=== PATIENT | female | born 2000 | race Two or more races ===

== ENCOUNTER 2023-10-26 12:21 | Observation (INO) | payer MEDICAID | END 2023-10-26 13:49 | disposition home or self-care (01) | LOC: LDRP 12:21 | PROVIDERS: ADMIT Obstetrics & Gynecology; ATTEND Obstetrics & Gynecology | DX: O48.0 Post-term pregnancy (principal); Z3A.40 40 weeks gestation of pregnancy | CPT/HCPCS: 59025; 76818; 81002; 94760; G0378 ==

== ENCOUNTER 2023-10-28 11:02 | Inpatient (IN) | payer MEDICAID ==
[~2023-10-28] VITALS: Ht 154.9 cm; Wt 90.7 kg
[2023-10-28] MEDS ORDERED: BUTORPHANOL TARTRATE 2 MG/1 ML VIAL IV PRN ×2 (11:30)
[2023-10-28 11:59] LABS: Basophils # (auto) 0 10 ^3/uL (0-0.2); Basophils % (auto) 0.1 % (0.0-2.0); Eosinophils # (auto) 0 10 ^3/uL (0-0.8); Eosinophils % (auto) 0.3 % (0.0-7.0); Hemoglobin 12.7 g/dL (12.2-16.2); Lymphocytes # (auto) 2.1 10 ^3/uL (0.4-5.4); Lymphocytes % (auto) 23.7 % (10.0-50.0); Mean Corpuscular Hemoglobin 30.5 pg (28.0-32.0); Mean Corpuscular Hgb Conc. 34.4 g/dL (32.0-36.0); Mean Corpuscular Volume 88.6 fL (80.0-100.0); Monocytes # (auto) 0.7 10 ^3/uL (0-1.3); Monocytes % (auto) 8.2 % (0.0-12.0); Neutrophils # (auto) 5.9 10 ^3/uL (1.6-8.6); Neutrophils % (auto) 67.7 % (37.0-80.0); Red Blood Cells 4.18 10^6/uL (4.0-5.20); Red Cell Distribution Width 15.3 % (11.8-14.3); White Blood Cell 8.7 10^3/uL (4.4-10.8)
[2023-10-28 12:03] LABS: Urine Bacteria None Seen /hpf (None Seen)
[2023-10-28 12:03] LABS: Alanine Aminotransferase 23 U/L (7-40); Albumin 3.8 g/dL (3.2-4.8); Alkaline Phosphatase 212 U/L (46-116); Anion Gap 9 (5-15); Aspartate Aminotransferase 15 U/L (13-40); BUN/Creatinine Ratio 10.4 (10.0-20.0); Bilirubin, Total 0.5 mg/dL (0.2-1.0); Blood Urea Nitrogen 5 mg/dL (9-23); Carbon Dioxide 21 mmol/L (20-30); Chloride 106 mmol/L (98-107); Glucose 88 mg/dL (74-106); Potassium 3.7 mmol/L (3.5-5.1); Sodium 136 mmol/L (136-145); Total Protein 6.3 g/dL (5.7-8.2)
[2023-10-28 12:06] LABS: INR 0.95 (0.9-1.15); Partial Thromboplastin Time 27.4 SEC (24.5-34.5); Prothrombin Time 10.1 sec (9.3-11.8)
[2023-10-28 12:13] LABS: Urine Blood Negative /uL (Negative); Urine Clarity Turbid (Clear); Urine Color Yellow (Yellow); Urine Mucus FEW (None Seen); Urine Protein, UAD TRACE (Negative); Urine Specific Gravity 1.023 (1.001-1.035); Urine Urobilinogen 2 mg/dL (Negative); Urine WBC 1 /hpf (0 - 5); Urine pH 6.5 (5.0-9.0)
[2023-10-28 12:25] LABS: Amphetamine Screen, Urine Neg (NEGATIVE); Barbiturate Scree,Urine Neg (NEGATIVE); Benzodiazephine Screen, Urine Neg (NEGATIVE); Cocaine Screen, Urine Neg (NEGATIVE)
[2023-10-28 12:26] LABS: Cannabinoid Screen, Urine Neg (NEGATIVE); Opiate Scree,Urine Neg (NEGATIVE); Phencyclidine Screen, Urine Neg (NEGATIVE)
[2023-10-28] MEDS: LACTATED RINGER'S 1,000 ML IV SCH (12:52)
[2023-10-28] MEDS: miSOPROStol 50 MCG per PRE-CUT 1/2 TAB PO PRN (13:00)
[2023-10-29] MEDS ORDERED: TERBUTALINE SULFATE 1 MG/ML 1ML VIAL SC PRN (04:30)
[2023-10-29] MEDS ORDERED: ONDANSETRON HCL 4 MG/2 ML VIAL IV PRN (04:30)
[2023-10-29] MEDS: LIDOCAINE HCL 2 %PF INJ 10ML AMP IJ ONE (07:45)
[2023-10-29] MEDS: LACTATED RINGER'S 1,000 ML IV ONE (07:45)
[2023-10-29] MEDS: NALOXONE HCL 0.4 MG/ML VIAL IV ONE ×2 (09:45→19:00)
[2023-10-29] MEDS ORDERED: fentaNYL 400mCg/200ml W ROPIVA 200 ML EPI SCH (09:45)
[2023-10-29] MEDS: ePHEDrine SULFATE 50 MG/ML AMP IV ONE ×2 (09:45→19:00)
[2023-10-29] MEDS: NALBUPHINE HCL 10 MG/1ml INJECTION IV PRN (10:07)
[2023-10-29] MEDS: fentaNYL CITRATE 100 MCG/2 ML VL IV ONE ×2 (14:09→14:10)
[2023-10-29] MEDS: ROPIVACAINE HCL 200 ML ONE (14:10)
[2023-10-29] MEDS: LACT. RINGERS/OXYTOCIN 20UNITS 1,000 ML IV SCH (14:11)
[2023-10-29] MEDS: LIDOCAINE 2%HCL (LOCAL ANESTH.) INJ 10ml MDV ONE (19:00)
[2023-10-29] MEDS: fentaNYL CITRATE 100 MCG/2 ML VL ONE (19:00)
[2023-10-29] MEDS: LACT. RINGERS/OXYTOCIN 20UNITS 500 ML IV ONE ×2 (19:38→20:03)
[2023-10-29] MEDS: METHYLERGONOVINE MALEATE 0.2 MG/ML AMP IM ONE (20:04)
[2023-10-29] MEDS: LIDOCAINE 2%HCL (LOCAL ANESTH.) INJ 20ML MDV IJ PRN (20:05)
[2023-10-29] MEDS ORDERED: IBUPROFEN 600 MG TAB PO PRN (21:30)
[2023-10-29] MEDS: DERMOPLAST 60ML BOTTLE TOP PRN (21:43)
[2023-10-29] MEDS: PHISODERM TOP SOLN 240ML BTL TOP PRN (21:43)
[2023-10-29] MEDS: WITCH HAZEL-GLYCERIN PAD TOP PRN (21:43)
[2023-10-29] MEDS: ACETAMINOPHEN 325 MG TAB PO PRN (21:44)
[2023-10-29] MEDS: DOCUSATE SOD 100 MG CAP PO SCH (22:00)
[2023-10-29 22:32] LABS: Basophils # (auto) 0 10 ^3/uL (0-0.2); Basophils % (auto) 0.3 % (0.0-2.0); Eosinophils # (auto) 0 10 ^3/uL (0-0.8); Eosinophils % (auto) 0.1 % (0.0-7.0); Hematocrit 37.5 % (36.0-46.0); Hemoglobin 12.7 g/dL (12.2-16.2); Lymphocytes # (auto) 2.1 10 ^3/uL (0.4-5.4); Lymphocytes % (auto) 11.8 % (10.0-50.0); Mean Corpuscular Hemoglobin 30.1 pg (28.0-32.0); Mean Corpuscular Volume 88.7 fL (80.0-100.0); Monocytes # (auto) 1.2 10 ^3/uL (0-1.3); Monocytes % (auto) 6.8 % (0.0-12.0); Neutrophils # (auto) 14.2 10 ^3/uL (1.6-8.6); Red Blood Cells 4.23 10^6/uL (4.0-5.20); Red Cell Distribution Width 15.1 % (11.8-14.3); White Blood Cell 17.5 10^3/uL (4.4-10.8)
[2023-10-29 23:00] VITALS: BP 106/64; PULSE 94; RESP 16; TEMP 98.3; O2SAT 98
[2023-10-30] MEDS: LACT. RINGERS/OXYTOCIN 20UNITS 1,000 ML IV SCH (00:13)
[2023-10-30 03:00] VITALS: BP 105/66; PULSE 91; RESP 14; TEMP 98.9; O2SAT 97
[2023-10-30 05:49] LABS: Basophils # (auto) 0 10 ^3/uL (0-0.2); Basophils % (auto) 0.4 % (0.0-2.0); Eosinophils # (auto) 0 10 ^3/uL (0-0.8); Eosinophils % (auto) 0.1 % (0.0-7.0); Hematocrit 32.5 % (36.0-46.0); Lymphocytes # (auto) 2.1 10 ^3/uL (0.4-5.4); Mean Corpuscular Hemoglobin 30.3 pg (28.0-32.0); Mean Corpuscular Hgb Conc. 33.9 g/dL (32.0-36.0); Mean Corpuscular Volume 89.4 fL (80.0-100.0); Monocytes # (auto) 1.1 10 ^3/uL (0-1.3); Monocytes % (auto) 8.3 % (0.0-12.0); Neutrophils # (auto) 9.6 10 ^3/uL (1.6-8.6); Neutrophils % (auto) 75.2 % (37.0-80.0); Red Blood Cells 3.64 10^6/uL (4.0-5.20); Red Cell Distribution Width 15.3 % (11.8-14.3); White Blood Cell 12.8 10^3/uL (4.4-10.8)
[2023-10-30 07:02] VITALS: BP 104/56; PULSE 111; RESP 18; TEMP 98.3; O2SAT 96
[2023-10-30 10:55] VITALS: BP 107/59; PULSE 111; RESP 18; TEMP 98.2; O2SAT 97
[2023-10-30 15:30] VITALS: BP 103/60; PULSE 102; RESP 20; TEMP 98.2; O2SAT 20
[2023-10-30 19:00] VITALS: BP 103/67; PULSE 103; RESP 16; TEMP 97.4; O2SAT 97
[2023-10-30 23:00] VITALS: BP 106/69; PULSE 99; RESP 16; TEMP 97.8; O2SAT 97
[2023-11-01 12:47] LABS: RPR Non Reactive (Non Reactive)
== END 2023-10-30 23:43 | disposition home or self-care (01) | DRG 560 ==
LOC: LDRP 11:02 → UNDOADMIN 11:02 → LDRP 11:18
PROVIDERS: ADMIT Obstetrics & Gynecology; ATTEND Obstetrics & Gynecology
PROC: 3E0DXGC Introduction of Other Therapeutic Substance into Mouth and Pharynx, External Approach (ICD-10-PCS; 2023-10-28)
PROC: 10E0XZZ Delivery of Products of Conception, External Approach (ICD-10-PCS; principal; 2023-10-30)
PROC: 00HU33Z Insertion of Infusion Device into Spinal Canal, Percutaneous Approach (ICD-10-PCS; 2023-10-30)
PROC: 3E0R3BZ Introduction of Anesthetic Agent into Spinal Canal, Percutaneous Approach (ICD-10-PCS; 2023-10-30)
PROC: 0KQM0ZZ Repair Perineum Muscle, Open Approach (ICD-10-PCS; 2023-10-30)
DX: O48.0 Post-term pregnancy (principal); Z37.0 Single live birth; O70.1 Second degree perineal laceration during delivery; Z3A.40 40 weeks gestation of pregnancy
CPT/HCPCS: 36415; 59409; 62282; 80053; 80307; 81001; 85025; 85610; 85730; 86592; 86803; 86850; 86900; 86901; 94760; 96360; 96361; 96365; 96366; 96372; 96374; G0378; J2001; J2590

== ENCOUNTER 2024-10-22 02:48 | Inpatient (IN) | payer MEDICAID ==
[~2024-10-22] VITALS: Ht 154.9 cm; Wt 86.2 kg
[2024-10-22] MEDS: PHISODERM TOP SOLN 240ML BTL TOP PRN (03:42)
[2024-10-22] MEDS: DERMOPLAST 60ML BOTTLE TOP PRN (03:42)
[2024-10-22] MEDS: PENICILLIN G POT 5MIL/D5 50ML 50 ML IV ONE (03:42)
[2024-10-22] MEDS: WITCH HAZEL-GLYCERIN PAD TOP PRN (03:42)
[2024-10-22 04:01] LABS: Hematocrit 40.1 % (36.0-46.0); Hemoglobin 13.7 g/dL (12.2-16.2); Mean Corpuscular Hemoglobin 31.1 pg (28.0-32.0); Mean Corpuscular Volume 91.3 fL (80.0-100.0); Nucleated Red Blood Cells % 0.0 %
[2024-10-22 04:12] LABS: INR 0.92 (0.9-1.15); Partial Thromboplastin Time 29.4 SEC (24.5-34.5); Prothrombin Time 9.8 sec (9.3-11.8)
[2024-10-22 04:18] LABS: Alanine Aminotransferase 10 U/L (7-40); Albumin 4.0 g/dL (3.2-4.8); Anion Gap 10 (5-15); BUN/Creatinine Ratio 16.7 (10.0-20.0); Calcium 8.9 mg/dL (8.7-10.4); Carbon Dioxide 21 mmol/L (20-31); Chloride 105 mmol/L (98-107); Glucose 85 mg/dL (74-106); Potassium 3.6 mmol/L (3.5-5.1); Sodium 136 mmol/L (136-145); Total Protein 6.6 g/dL (5.7-8.2)
[2024-10-22 04:19] LABS: Bilirubin, Total 0.5 mg/dL (0.2-1.0)
[2024-10-22 04:30] LABS: Alkaline Phosphatase 187 U/L (46-116); Blood Urea Nitrogen 7 mg/dL (9-23)
[2024-10-22] MEDS: NALBUPHINE HCL 10 MG/1ml INJECTION IV PRN (04:30)
[2024-10-22 04:59] LABS: Urine Protein, UAD Negative (Negative)
[2024-10-22 05:12] LABS: Amphetamine Screen, Urine Neg (NEGATIVE); Barbiturate Scree,Urine Neg (NEGATIVE); Benzodiazephine Screen, Urine Neg (NEGATIVE); Cannabinoid Screen, Urine Neg (NEGATIVE); Cocaine Screen, Urine Neg (NEGATIVE); Opiate Scree,Urine Neg (NEGATIVE); Phencyclidine Screen, Urine Neg (NEGATIVE)
[2024-10-22] MEDS ORDERED: LIDOCAINE HCL 2 %PF INJ 10ML AMP IJ ONE (05:30)
[2024-10-22] MEDS ORDERED: NALOXONE HCL 0.4 MG/ML VIAL IV ONE (05:30)
[2024-10-22] MEDS: LACTATED RINGER'S 1,000 ML IV SCH (05:34)
--- NOTE | 2024-10-22 05:50 | DVHHP2 ---
OB CC & HPI Date Date of Admission: Oct 22, 2024 Patient Identification: : 4 Para: 1 EDC: Oct 22, 2024 Chief Complaints: Reason for admission: active labor Other reason for admission: Active labor 5cm ,60%,-1 Admission Nurse Assessment Rev: Yes Past Medical History Cardiac: No pertinent Hx Pulmonary: No pertinent Hx Central Nervous System: No pertinent Hx GI: No pertinent Hx Hemotology/Oncology: No pertinent Hx Hepatobiliary: No pertinent Hx Psychiatric: No pertinent Hx Musculoskeletal: No pertinent Hx Rheumotologic: No pertinent Hx Infectious Disease: No peritnent Hx ENT: No pertinent Hx Renal/: No pertinent Hx Endocrine: No pertinent Hx Dermatology: No pertinent Hx OB History OB History Care: Limited Care Ultrasounds: Normal mid trimester US Allergies: Coded Allergies: NO KNOWN ALLERGIES (Unverified , 10/28/23) Home Meds No Active Prescriptions or Reported Meds Current Medications Current Medications Medications (Trade) Dose Ordered Sig/Cyndee Route PRN Reason Start Time Stop Time Status Last Admin Lactated Ringer's 1,000 ml @ 125 mls/hr Q8H IV 10/22/24 03:30 10/22/24 05:34 Nalbuphine HCl (Nubain) 10 mg Q4HP PRN IV MODERATE PAIN (4-6 PAIN SCALE) 10/22/24 03:30 10/22/24 04:30 Penicillin G Potassium 4424969 units/Dextrose 50 ml @ 100 mls/hr Q4H IV 10/22/24 07:30 Witch Corinne (Tucks) 1 pad PRN PRN TOP PERINEAL AREA DISCOMFORT 10/22/24 03:30 10/22/24 03:42 Sodium Lauryl Sulfate (Phisoderm) 240 ml PRN PRN TOP PERINEAL AREA DISCOMFORT 10/22/24 03:30 10/22/24 03:42 Benzocaine (Dermoplast) 1 applic PRN PRN TOP PERINEAL AREA DISCOMFORT 10/22/24 03:30 10/22/24 03:42 Lidocaine HCl (Xylocaine) 40 ml ONCE PRN IJ PERINEAL AREA DISCOMFORT 10/22/24 03:30 Methylergonovine Maleate (Methergine) 0.2 mg PRN PRN IM BLEED/HEMORRHAGE 10/22/24 03:30 Family & Social History Family/Social History RPR/VDRL: Negative GBS Status: Negative Review of Systems Constitutional: No symptom reported Ears, Nose, & Throat: No symptom reported Eyes: No symptom reported Pulmonary/Respiratory: No symptom reported Cardiovascular: No symptom reported Gastrointestinal: No symptom reported Genitourinary: No symptom reported Musculoskeletal: No symptom reported Skin: No symptom reported Psychiatric: No symptom reported Endocrine: No symptom reported Hemotologic/Lymphatic: No symptom reported OB Admission Exam Physical Exam Vitals: Vital Signs Date Time Temp Pulse Resp B/P (MAP) Pulse Ox O2 Delivery O2 Flow Rate FiO2 10/22/24 05:34 89 15 113/63 HEENT: TMs Normal, Fontanelles Normal, Nasal Mucosa Normal, Eyes non-injected, Oropharynx Normal, PERRLA, Moist Membranes, EOMI Heart: Rhythm Normal Lungs: Clear Abdomen: Gravid Extremities: Normal Reflexes: Normal Cervical Dilatation: 5cm Effacement: 50% Station: -1 Membranes: Intact Heart Rate: 130's Accelerations: Accelerations Present Decelerations: No Decelerations Short Term Variability: Present Bacteriologist Medical Variability: Average (6-25) Contractions on Admission: < 5 Minutes Apart Intensity: Mild OB Plan Plan Admitting Diagnosis: Onset of Labor Plan: Expectant Management Visit Coding OBGYN Date of Service: Oct 22, 2024 Billing Provider: JANET RODRIGUEZ DO MANAGER FIELD SERVICE Common Visit Codes: 42223-HZT/OBS SAME DATE (LOW), 42116-JKT/OBS SAME DATE (MOD), 72524-DXS/OBS SAME DATE (HIGH) MANAGER FIELD SERVICE Procedure Codes: 44208-TDM DEL INCLUDING JANET RODRIGUEZ DO Oct 22, 2024 05:50
[2024-10-22] MEDS: fentaNYL CITRATE 100 MCG/2 ML VL IV ONE (06:25)
--- NOTE | 2024-10-22 06:40 | EPIDURAL ---
Anesthesia Procedural Note - Epidural Informed consent obtained?: Yes Medication Administered: Fentanyl 100 mcg Medication Administered: ePHEDrine 5 mg IV Sterile prept drape: Yes Spinal level of insertion: L3-L4 Test dose of lidocaine & Epine: Negative Infusion started: Yes Start time: 05:50 End time: 14:25 Procedure description Procedure description: 23 y/o at 28.5 weeks AOG in active labor, desires PCEA for L & D. Delivered a single live baby girl with APGARs 8 & 8 at 1 & 5 minutes respectively. There was also noted thick, meconium stained fluid. Epidural catheter pulled with tip intact. No oozing, redness, or pain around the epidural area. She is back to baseline, able to ambulate and blakely with her . Total epidural time: 0550 - 1425 Total face to face time: 0550 - 0640 LOS SORIA MD Oct 22, 2024 06:40
[2024-10-22] MEDS ORDERED: PENICILLIN G POTASSIUM 2,500,000 UNITS in D5W 5% 50 ML IV SCH (07:30)
--- NOTE | 2024-10-22 07:59 | DVHPN2 ---
CNM Labor Progress Note Date and Time Seen Date Seen: Oct 22, 2024 Time Seen: 07:51 Subjective Patient reports: No new complaints Subjective Comment Pt is comfortable with epidural. Objective Vital Signs VSS, see chart Leopolds: OMER, asynclitic, vertex Monitoring Method Monitoring Method: External Heart Rate Heart Rate Baseline: 120 Heart Rate Variability: Minimal Presence of FHR Accelerations: Yes Presence of FHR Decelerations: Yes Heart Rate Type of Decel: Late Decelerations Comment on Trends or Patterns: IV fluid bolus given maternal position changed Are all 5 Components of the FH: Yes Contractions Contractions Frequency: Other (q3-4 min) Duration of Contraction: 100 Contractions Intensity: Moderate Contractions Resting Tone: Relaxed Membranes Membranes: Bulging Vaginal Exam Vag Exam Deferred: Yes () Medications Medications - Pitocin: No Medication - Epidural: Yes Lab Results Lab Results Vital Signs Date Time Temp Pulse Resp B/P (MAP) Pulse Ox O2 Delivery O2 Flow Rate FiO2 10/22/24 06:25 123/78 10/22/24 05:34 89 15 Current Medications Medications (Trade) Dose Ordered Sig/Cyndee Start Time Stop Time Status Last Admin Dose Admin Lactated Ringer's 1,000 ml @ 125 mls/hr Q8H 10/22/24 03:30 10/22/24 05:34 125 MLS/HR Nalbuphine HCl (Nubain) 10 mg Q4HP PRN 10/22/24 03:30 10/22/24 04:30 10 MG Penicillin G Potassium 50 ml @ 100 mls/hr ONCE ONCE 10/22/24 03:30 10/22/24 03:59 DC 10/22/24 03:42 100 MLS/HR Penicillin G Potassium [id number] units/Dextrose 50 ml @ 100 mls/hr Q4H 10/22/24 07:30 Witch Corinne (Tucks) 1 pad PRN PRN 10/22/24 03:30 10/22/24 03:42 1 PAD Sodium Lauryl Sulfate (Phisoderm) 240 ml PRN PRN 10/22/24 03:30 10/22/24 03:42 240 ML Benzocaine (Dermoplast) 1 applic PRN PRN 10/22/24 03:30 10/22/24 03:42 1 APPLIC Lidocaine HCl (Xylocaine) 40 ml ONCE PRN 10/22/24 03:30 Oxytocin 500 ml @ 999 mls/hr Q31M ONCE 10/22/24 03:30 10/22/24 04:00 DC Oxytocin 500 ml @ 125 mls/hr Q4H ONCE 10/22/24 04:00 10/22/24 07:59 DC Methylergonovine Maleate (Methergine) 0.2 mg PRN PRN 10/22/24 03:30 Naloxone HCl (Narcan) 0.2 mg PRN ONCE 10/22/24 05:30 10/22/24 05:31 DC Ephedrine Sulfate (ePHEDrine SULFATE) 10 mg PRN ONCE 10/22/24 05:30 10/22/24 05:31 DC Fentanyl Citrate 100 mcg ONCE ONCE 10/22/24 05:30 10/22/24 05:31 DC 10/22/24 06:25 100 MCG Lidocaine HCl (Xylocaine-Pf 2% Injection) 10 ml ONCE ONCE 10/22/24 05:30 10/22/24 05:31 DC Laboratory Tests Test 10/22/24 03:44 10/22/24 03:34 10/22/24 03:24 Range/Units White Blood Count 11.2 H 4.4-10.8 10^3/uL Red Blood Count 4.39 4.0-5.20 10^6/uL Hemoglobin 13.7 12.2-16.2 g/dL Hematocrit 40.1 36.0-46.0 % Mean Corpuscular Volume 91.3 80.0-100.0 fL Mean Corpuscular Hemoglobin 31.1 28.0-32.0 pg Mean Corpuscular Hemoglobin Concent 34.1 32.0-36.0 g/dL Red Cell Distribution Width 13.2 11.8-14.3 % Platelet Count 145 140-450 10^3/uL Mean Platelet Volume 9.0 6.9-10.8 fL Neutrophils (%) (Auto) 67.2 37.0-80.0 % Lymphocytes (%) (Auto) 24.3 10.0-50.0 % Monocytes (%) (Auto) 7.8 0.0-12.0 % Eosinophils (%) (Auto) 0.3 0.0-7.0 % Basophils (%) (Auto) 0.4 0.0-2.0 % Neutrophils # (Auto) 7.5 1.6-8.6 10 ^3/uL Lymphocytes # (Auto) 2.7 0.4-5.4 10 ^3/uL Monocytes # (Auto) 0.9 0-1.3 10 ^3/uL Eosinophils # (Auto) 0 0-0.8 10 ^3/uL Basophils # (Auto) 0 0-0.2 10 ^3/uL Nucleated Red Blood Cells 0.0 % Prothrombin Time 9.8 9.3-11.8 sec Prothrombin Time INR 0.92 0.9-1.15 Activated Partial Thromboplast Time 29.4 24.5-34.5 SEC Sodium Level 136 136-145 mmol/L Potassium Level 3.6 3.5-5.1 mmol/L Chloride Level 105 98-107 mmol/L Carbon Dioxide Level 21 20-31 mmol/L Anion Gap 10 5-15 Blood Urea Nitrogen 7 L 9-23 mg/dL Creatinine 0.42 L 0.550-1.02 mg/dL Glomerular Filtration Rate Calc 143 >90 mL/min BUN/Creatinine Ratio 16.7 10.0-20.0 Serum Glucose 85 74-106 mg/dL Hemoglobin A1c 4.8 <5.7 % A1C Calcium Level 8.9 8.7-10.4 mg/dL Total Bilirubin 0.5 0.2-1.0 mg/dL Aspartate Amino Transferase (AST) 18 13-40 U/L Alanine Aminotransferase (ALT) 10 7-40 U/L Alkaline Phosphatase 187 H 46-116 U/L Total Protein 6.6 5.7-8.2 g/dL Albumin 4.0 3.2-4.8 g/dL Treponema pallidum Antibody Non-reactive Negative Hepatitis B Surface Antigen Negative Negative Hepatitis C Antibody Negative Negative HIV (1&2) Antibody Negative Negative Rubella Antibody Positive Urine Color Colorless Yellow Urine Clarity Turbid H Clear Urine pH 6.5 5.0-9.0 Urine Specific [place] 1.018 1.001-1.035 Urine Protein Negative Negative Urine Ketones 1+ H Negative Urine Blood 1+ H Negative /uL Urine Nitrite Negative Negative Urine Bilirubin Negative Negative Urine Urobilinogen Normal Negative mg/dL Urine Leukocyte Esterase 2+ Negative /uL Urine RBC 1 0 - 4 /hpf Urine Microscopic WBC 30 H 0-5 /HPF Urine Squamous Epithelial Cells Mod <5 /hpf Urine Bacteria Few H None Seen /hpf Urine Mucus Few None Seen Urine Glucose Normal Normal mg/dL Urine Opiates Screen Neg NEGATIVE Urine Fentanyl Screen Neg NEGATIVE Urine Barbiturates Screen Neg NEGATIVE Urine Phencyclidine Screen Neg NEGATIVE Urine Amphetamines Screen Neg NEGATIVE Urine Benzodiazepines Screen Neg NEGATIVE Urine Cocaine Screen Neg NEGATIVE Urine Cannabinoids Screen Neg NEGATIVE Chlamydia trachomatis (XAVIER) Pending Neisseria gonorrhoeae (XAVIER) Pending Assessment Assessment A: 23yo IUP@38.5wks Active labor Category I EFM Intact amniotic membranes GBS negative Plan Plan P: Expectant mgmt due to frequent UCs Reposition pt frequently with peanut ball HgA1c lab ordered since GTT was not done prenatally OB complete ordered since last few appts were missed Anticipate CNM to consult Dr. Mooney PRN Plan discussed with: Patient Visit Coding OBGYN Date of Service: Oct 22, 2024 Billing Provider: JOHN LOMBARDO CNM MERCHANDISING INTERN Common Visit Codes: [id number] INP/OBS CARE(MOD) MERCHANDISING INTERN Procedure Codes: 80184-18- NON-STRESS TEST JOHN LOMBARDO CNM Oct 22, 2024 07:59
--- NOTE | 2024-10-22 09:10 | DVH ---
LIMITED OB ULTRASOUND > 14 WKS: HISTORY: EFW TECHNIQUE: Multiple real-time grayscale images of the gravid uterus with duplex Doppler color flow an d M-mode spectral analysis. FINDINGS: IUP single live fetus at 37 weeks 3 days based on composite averages of the BPD, head circumference, abdominal circumference and femur length. The measurements are as follows: BPD: 9.1 cm, 37 weeks 1 day HC: 33.1 cm, 37 weeks 6 days AC: 33.8 cm, 37 weeks 5 days FL: 7.2 cm, 37 weeks 0 days Estimated date of delivery is 11/09/2024. Estimated weight 3227 grams heart rate 124 beats per minute JAMEL 9.6 cm Cervix is not evaluated Cephalic Presentation Posterior Placenta without previa or abruption. IMPRESSION: 1. IUP single live fetus at 37 weeks 3 days AUA with positive heart rate. Estimated weigh t is 3227 g.
--- NOTE | 2024-10-22 13:13 | DVHPN2 ---
CNM Labor Progress Note Date and Time Seen Date Seen: Oct 22, 2024 Time Seen: 13:05 Subjective Patient reports: No new complaints Objective Vital Signs VSS, see chart [address] [address] Ph: [phone] DIAGNOSTIC IMAGING Diagnostic Imaging Report : [id number] Signed PATIENT: NJ SULTANA ACCT: [id number] UNIT: [id number] : 2000 LOC: [facility] ROOM / BED: [facility] / A AGE / SEX: 23 / F ADM STATUS: ADM IN SERVICE 0739 ORDERING PHYSICIAN: JOHN LOMBARDO CNM PROCEDURE(s): OBUS - OB ULTRASOUND COMP GTR 14 WKS REASON: EFW ORDER NUMBER(s): [id number], ACCESSION NUMBER(s): [id number] LIMITED OB ULTRASOUND > 14 WKS: HISTORY: EFW TECHNIQUE: Multiple real-time grayscale images of the gravid uterus with duplex Doppler color flow and M-mode spectral analysis. FINDINGS: IUP single live fetus at 37 weeks 3 days based on composite averages of the BPD, head circumference, abdominal circumference and femur length. The measurements are as follows: BPD: 9.1 cm, 37 weeks 1 day HC: 33.1 cm, 37 weeks 6 days AC: 33.8 cm, 37 weeks 5 days FL: 7.2 cm, 37 weeks 0 days Estimated date of delivery is 11/09/2024. Estimated weight 3227 grams heart rate 124 beats per minute JAMEL 9.6 cm Cervix is not evaluated Cephalic Presentation Posterior Placenta without previa or abruption. IMPRESSION: 1. IUP single live fetus at 37 weeks 3 days AUA with positive heart rate. Estimated weight is 3227 g. ATED BY: FRANCISCO J CHOUDHARY MD DICTATED DATE/TIME: 10/22/24907 SIGNED BY: FRANCISCO J CHOUDHARY MD SIGNED DATE/TIME: 10/22/24907 CC: Monitoring Method Monitoring Method: External Heart Rate Heart Rate Baseline: 120 Heart Rate Variability: Moderate Presence of FHR Accelerations: Yes Presence of FHR Decelerations: No Are all 5 Components of the FH: Yes Contractions Contractions Frequency: Other (q3-4 min) Duration of Contraction: 90 Contractions Intensity: Moderate Contractions Resting Tone: Relaxed Membranes Membranes: Bulging Vaginal Exam Vag Exam Deferred: Yes ( by RN) Medications Medications - Pitocin: No Medication - Epidural: Yes Lab Results Lab Results Vital Signs Date Time Temp Pulse Resp B/P (MAP) Pulse Ox O2 Delivery O2 Flow Rate FiO2 10/22/24 06:25 123/78 10/22/24 05:34 89 15 Current Medications Medications (Trade) Dose Ordered Sig/Cyndee Start Time Stop Time Status Last Admin Dose Admin Lactated Ringer's 1,000 ml @ 125 mls/hr Q8H 10/22/24 03:30 10/22/24 05:34 125 MLS/HR Nalbuphine HCl (Nubain) 10 mg Q4HP PRN 10/22/24 03:30 10/22/24 04:30 10 MG Penicillin G Potassium 50 ml @ 100 mls/hr ONCE ONCE 10/22/24 03:30 10/22/24 03:59 DC 10/22/24 03:42 100 MLS/HR Penicillin G Potassium 7129602 units/Dextrose 50 ml @ 100 mls/hr Q4H 10/22/24 07:30 Witch Corinne (Tucks) 1 pad PRN PRN 10/22/24 03:30 10/22/24 03:42 1 PAD Sodium Lauryl Sulfate (Phisoderm) 240 ml PRN PRN 10/22/24 03:30 10/22/24 03:42 240 ML Benzocaine (Dermoplast) 1 applic PRN PRN 10/22/24 03:30 10/22/24 03:42 1 APPLIC Lidocaine HCl (Xylocaine) 40 ml ONCE PRN 10/22/24 03:30 Oxytocin 500 ml @ 999 mls/hr Q31M ONCE 10/22/24 03:30 10/22/24 04:00 DC Oxytocin 500 ml @ 125 mls/hr Q4H ONCE 10/22/24 04:00 10/22/24 07:59 DC Methylergonovine Maleate (Methergine) 0.2 mg PRN PRN 10/22/24 03:30 Naloxone HCl (Narcan) 0.2 mg PRN ONCE 10/22/24 05:30 10/22/24 05:31 DC Ephedrine Sulfate (ePHEDrine SULFATE) 10 mg PRN ONCE 10/22/24 05:30 10/22/24 05:31 DC Fentanyl Citrate 100 mcg ONCE ONCE 10/22/24 05:30 10/22/24 05:31 DC 10/22/24 06:25 100 MCG Lidocaine HCl (Xylocaine-Pf 2% Injection) 10 ml ONCE ONCE 10/22/24 05:30 10/22/24 05:31 DC Laboratory Tests Test 10/22/24 03:44 10/22/24 03:34 10/22/24 03:24 Range/Units White Blood Count 11.2 H 4.4-10.8 10^3/uL Red Blood Count 4.39 4.0-5.20 10^6/uL Hemoglobin 13.7 12.2-16.2 g/dL Hematocrit 40.1 36.0-46.0 % Mean Corpuscular Volume 91.3 80.0-100.0 fL Mean Corpuscular Hemoglobin 31.1 28.0-32.0 pg Mean Corpuscular Hemoglobin Concent 34.1 32.0-36.0 g/dL Red Cell Distribution Width 13.2 11.8-14.3 % Platelet Count 145 140-450 10^3/uL Mean Platelet Volume 9.0 6.9-10.8 fL Neutrophils (%) (Auto) 67.2 37.0-80.0 % Lymphocytes (%) (Auto) 24.3 10.0-50.0 % Monocytes (%) (Auto) 7.8 0.0-12.0 % Eosinophils (%) (Auto) 0.3 0.0-7.0 % Basophils (%) (Auto) 0.4 0.0-2.0 % Neutrophils # (Auto) 7.5 1.6-8.6 10 ^3/uL Lymphocytes # (Auto) 2.7 0.4-5.4 10 ^3/uL Monocytes # (Auto) 0.9 0-1.3 10 ^3/uL Eosinophils # (Auto) 0 0-0.8 10 ^3/uL Basophils # (Auto) 0 0-0.2 10 ^3/uL Nucleated Red Blood Cells 0.0 % Prothrombin Time 9.8 9.3-11.8 sec Prothrombin Time INR 0.92 0.9-1.15 Activated Partial Thromboplast Time 29.4 24.5-34.5 SEC Sodium Level 136 136-145 mmol/L Potassium Level 3.6 3.5-5.1 mmol/L Chloride Level 105 98-107 mmol/L Carbon Dioxide Level 21 20-31 mmol/L Anion Gap 10 5-15 Blood Urea Nitrogen 7 L 9-23 mg/dL Creatinine 0.42 L 0.550-1.02 mg/dL Glomerular Filtration Rate Calc 143 >90 mL/min BUN/Creatinine Ratio 16.7 10.0-20.0 Serum Glucose 85 74-106 mg/dL Hemoglobin A1c 4.8 <5.7 % A1C Calcium Level 8.9 8.7-10.4 mg/dL Total Bilirubin 0.5 0.2-1.0 mg/dL Aspartate Amino Transferase (AST) 18 13-40 U/L Alanine Aminotransferase (ALT) 10 7-40 U/L Alkaline Phosphatase 187 H 46-116 U/L Total Protein 6.6 5.7-8.2 g/dL Albumin 4.0 3.2-4.8 g/dL Treponema pallidum Antibody Non-reactive Negative Hepatitis B Surface Antigen Negative Negative Hepatitis C Antibody Negative Negative HIV (1&2) Antibody Negative Negative Rubella Antibody Positive Urine Color Colorless Yellow Urine Clarity Turbid H Clear Urine pH 6.5 5.0-9.0 Urine Specific [place] 1.018 1.001-1.035 Urine Protein Negative Negative Urine Ketones 1+ H Negative Urine Blood 1+ H Negative /uL Urine Nitrite Negative Negative Urine Bilirubin Negative Negative Urine Urobilinogen Normal Negative mg/dL Urine Leukocyte Esterase 2+ Negative /uL Urine RBC 1 0 - 4 /hpf Urine Microscopic WBC 30 H 0-5 /HPF Urine Squamous Epithelial Cells Mod <5 /hpf Urine Bacteria Few H None Seen /hpf Urine Mucus Few None Seen Urine Glucose Normal Normal mg/dL Urine Opiates Screen Neg NEGATIVE Urine Fentanyl Screen Neg NEGATIVE Urine Barbiturates Screen Neg NEGATIVE Urine Phencyclidine Screen Neg NEGATIVE Urine Amphetamines Screen Neg NEGATIVE Urine Benzodiazepines Screen Neg NEGATIVE Urine Cocaine Screen Neg NEGATIVE Urine Cannabinoids Screen Neg NEGATIVE Chlamydia trachomatis (XAVIER) Pending Neisseria gonorrhoeae (XAVIER) Pending Assessment Assessment A: 23yo IUP@38.5wks Active labor Category I EFM Intact amniotic membranes GBS negative Plan Plan P: Expectant mgmt due to frequent UCs Reposition pt frequently with peanut ball Anticipate CNM to consult Dr. Mooney PRN Plan discussed with: Patient Visit Coding OBGYN Date of Service: Oct 22, 2024 Billing Provider: JOHN LOMBARDO CNM [place] Common Visit Codes: [id number] INP/OBS CARE(MOD) JOHN LOMBARDO CNM Oct 22, 2024 13:13
[2024-10-22] MEDS ORDERED: ROPIVACAINE HCL 100 ML ONE (14:04)
[2024-10-22] MEDS ORDERED: LIDOCAINE 2%HCL (LOCAL ANESTH.) INJ 20ML MDV ONE (14:45)
[2024-10-22] MEDS ORDERED: ACETAMINOPHEN 325 MG TAB PO PRN (15:00)
[2024-10-22] MEDS ORDERED: ONDANSETRON ODT 4 MG TAB PO PRN (15:00)
[2024-10-22] MEDS ORDERED: METHYLERGONOVINE MALEATE 0.2 MG/ML AMP IM ONE (15:00)
[2024-10-22] MEDS: METHYLERGONOVINE MALEATE 0.2 MG/ML AMP IM PRN (15:10)
[2024-10-22] MEDS: ROPIVACAINE HCL 100 ML ONE (15:15)
[2024-10-22] MEDS: LACT. RINGERS/OXYTOCIN 20UNITS 500 ML IV ONE ×2 (15:16)
[2024-10-22] MEDS: LIDOCAINE 2%HCL (LOCAL ANESTH.) INJ 20ML MDV IJ PRN (15:17)
[2024-10-22] MEDS: ceFAZolin 2 GM/D5W50ml 50 ML IV ONE (16:08)
[2024-10-22 17:29] LABS: Hematocrit 37.0 % (36.0-46.0); Hemoglobin 12.5 g/dL (12.2-16.2); Mean Corpuscular Hemoglobin 30.6 pg (28.0-32.0); Mean Corpuscular Volume 90.1 fL (80.0-100.0); Nucleated Red Blood Cells % 0.0 %
[2024-10-22] MEDS: IBUPROFEN 600 MG TAB PO PRN (17:45)
[2024-10-22 18:46] VITALS: BP 123/62; PULSE 94; RESP 18; TEMP 98.1; O2SAT 95
--- NOTE | 2024-10-22 21:12 | LDN2 ---
Labor and Delivery Note Date 10/22/24 Age 23 4 Para now 2 AB 2 EDC 10/22/24 EGA 38.5wks Diagnosis spontaneous labor then Vaginal Delivery: VTX Placenta: Spontaneous Sex: Female Weight 3310g Apgars 8/8 Nuchal Cord Transected: No Amniotic Fluid: Meconium Stained, Thick Anesthesia epidural and local Episiotomy: No Extension: No Repaired with 3-0 vicryl on SH EBL QBL 1350ml Labs Laboratory Tests 10/22/24 03:44: Hepatitis B Surface Antigen Negative, HIV (1&2) Antibody Negative, Rubella Antibody Positive Blood Bank 10/22/24 03:44: Blood Type O POSITIVE Complications PPH: bleeding noted after of baby and prior to delivery of placenta, IV pitocin bolus started after cord was cut, TXA 1g IVPB and cytotec 800mcg CO given. After placenta delivered, manual sweep done and uterus cleared of all clots, boggy lower uterine segment noted. Methergine IM x1 given. Ancef 2g IVPB x1 ordered to give within 1 hour. Straight catheter done, bladder emptied. Conditions stable Hand Mold Maker Antonio Comments/Significant Med Vicente At 1410 this 23yo now delivered a viable Female infant by w/ APGARS 8/8. ERIKA with left arm compound presentation. Infant placed skin to skin on pts chest. Cord clamped and cut. Cord blood sent. See PPH note above. Pitocin IV bolus started. Intact 3-vessel cord placenta delivered spontaneously, [place] by Dr. Mooney at 30 minute chiqui. Placenta sent to pathology. Patient had epidural and local anesthesia. Cervix/vagina/perineum inspected (intact) and bilateral labial lacerations present which were repaired with 3-0 vicryl SH suture. Fundus at U, firm, midline, and light lochia. QBL 1350ml. VSS. Count correct x2. Patient to care and baby to couplet care, both stable. Delivery and suturing done by JHOANA Sam with supervision of Tg Owens CNM. Visit Coding OBGYN Date of Service: Oct 22, 2024 Billing Provider: TG OWENS CNM VOCATIONAL NURSE LVN Common Visit Codes: PROCEDURE ONLY VOCATIONAL NURSE LVN Procedure Codes: [id number] DEL INCLUDING GT OWENS [facility] Oct 22, 2024 21:12
[2024-10-22] MEDS ORDERED: PREN-96 PO (21:58)
[2024-10-22] MEDS ORDERED: DOCU-265 PO (21:58)
[2024-10-22] MEDS ORDERED: IBU600T PO (21:58)
[2024-10-22] MEDS ORDERED: FER325T PO (21:58)
[2024-10-22] MEDS ORDERED: DOCUSATE SOD 100 MG CAP PO ONE (22:00)
[2024-10-22 23:00] VITALS: BP 113/55; PULSE 88; RESP 16; TEMP 97.7; O2SAT 97
--- NOTE | 2024-10-23 05:30 | DVHPN2 ---
Progress Note Date Seen: Oct 23, 2024 Subjective S: pt needs help , light bleeding, ambulating well, voiding, no BM yet, denies any headache, blurry vision or epigastric pain, denies dizziness, tolerating food well, pain is well controlled with PO meds vital signs Vital Sign Date Time Temp Pulse Resp B/P (MAP) Pulse Ox O2 Delivery O2 Flow Rate FiO2 10/22/24 23:00 97.7 88 16 113/55 (74) 97 97.7 10/22/24 19:00 Room Air Total Intake and Output 10/22/24 10/22/24 10/23/24 15:00 23:00 07:00 Output Total 1800 ml Balance -1800 ml medications Current Medications Medications Dose Ordered Sig/Cyndee Route Start Time Stop Time Status Last Admin Dose Admin Kishor Sun 1 pad PRN PRN TOP 10/22/24 03:30 10/22/24 03:42 1 PAD Sodium Lauryl Sulfate 240 ml PRN PRN TOP 10/22/24 03:30 10/22/24 03:42 240 ML Benzocaine 1 applic PRN PRN TOP 10/22/24 03:30 10/22/24 03:42 1 APPLIC Methylergonovine Maleate 0.2 mg PRN PRN IM 10/22/24 03:30 10/22/24 15:10 0.2 MG Ibuprofen 600 mg Q6HP PRN PO 10/22/24 15:00 10/22/24 17:45 600 MG Acetaminophen 650 mg Q4HP PRN PO 10/22/24 15:00 Ondansetron HCl 4 mg Q4HPRN PRN PO 10/22/24 15:00 laboratory and microbiology Laboratory Tests 10/22/24 17:00 10/22/24 03:44 Test 10/22/24 03:44 Range/Units Serum Glucose 85 74-106 mg/dL Objective O: VSS Chest: heart sounds normal and lung sounds clear bilaterally Abd: soft, non-tender, fundus at U/firm/midline, active bowel sounds, no rebound or guarding Perineum: sutures intact, edges well approximated, no erythema/edema noted Lochia: minimal assisted with See lab results Problems(with codes): (1) (normal spontaneous vaginal delivery) (2) Precipitous drop in hematocrit (3) Obstetric labial laceration, delivered, current hospitalization (4) PPH ( hemorrhage) Assessment/Plan A: 23yo ppd#1 s/p doing well. Rh status + Breast/bottle feeding at this time Rubella status immune Pain control with PO medications Bowel regimen P: Discharge plan discussed D/C home today Rx sent to pharmacy precautions and preeclampsia warning signs reviewed F/u Dr Mooney in 2 wks Plan discussed with: Patient CHARLES MAURIZIO LOPEZ Oct 23, 2024 05:30
[2024-10-23 06:30] VITALS: BP 116/57; PULSE 92; RESP 18; TEMP 98; O2SAT 98
[2024-10-23 07:00] LABS: Hematocrit 30.4 % (36.0-46.0); Hemoglobin 10.6 g/dL (12.2-16.2); Mean Corpuscular Hemoglobin 31.0 pg (28.0-32.0); Mean Corpuscular Volume 89.2 fL (80.0-100.0); Nucleated Red Blood Cells % 0.1 %
[2024-10-23 11:07] VITALS: BP 117/60; PULSE 90; RESP 18; TEMP 98.2; O2SAT 98
--- NOTE | 2024-10-23 15:25 | DVHDS2 ---
Obstetrics Discharge Summary Obstetrics Discharge Summary Date of Admission: Oct 22, 2024 Date of Discharge: Oct 23, 2024 Reason For Admission: Onset of Labor Procedures: NST, Ultrasound Intrapartum Procedures: Spontaneous vaginal deliv Procedures: Antibiotics, Hct/date:, Hgb/date: Operative Complicat: Laceration (bilateral labial), Hemorrhage (Uterine) Discharge Diagnosis: Term -Delivered Discharge Information: Activity (Activity: as tolerated, no heavy lifting and nothing in the vagina for 6 weeks), Diet (Routine), Medications (Rx sent), Instructions (Routine), Discharge to (Home), Accompanied by (family), Discarge date (10/23/24) Visit Coding OBGYN Date of Service: Oct 23, 2024 Billing Provider: JOHN LOMBARDO CNM SPECIAL ASSETS OFFICER Common Visit Codes: 54793-SFC/OBS DISCH DAY <30MIN JOHN LOMBARDO CNM Oct 23, 2024 15:25
[2024-10-23 15:30] VITALS: BP 112/65; PULSE 82; RESP 18; TEMP 98.1; O2SAT 98
[2024-10-23 16:07] VITALS: BP 112/65; PULSE 82; RESP 17; TEMP 98.1; O2SAT 100
[2024-10-23 19:06] LABS: Chlamydia Trachomatis, NAA Negative (Negative); Neisseria gonorrhoeae, NAA Negative (Negative)
== END 2024-10-23 16:07 | disposition home or self-care (01) | DRG 560 ==
LOC: LDRP 02:48 → OBSVTOIN 03:15 → LDRP 03:30
PROVIDERS: ADMIT Obstetrics & Gynecology; ATTEND Obstetrics & Gynecology
PROC: 10E0XZZ Delivery of Products of Conception, External Approach (ICD-10-PCS; principal; 2024-10-22)
PROC: 00HU33Z Insertion of Infusion Device into Spinal Canal, Percutaneous Approach (ICD-10-PCS; 2024-10-22)
PROC: 3E0R3BZ Introduction of Anesthetic Agent into Spinal Canal, Percutaneous Approach (ICD-10-PCS; 2024-10-22)
PROC: 0UQMXZZ Repair Vulva, External Approach (ICD-10-PCS; 2024-10-22)
DX: O77.0 Labor and delivery complicated by meconium in amniotic fluid (principal); Z37.0 Single live birth; O72.1 Other immediate postpartum hemorrhage; O70.0 First degree perineal laceration during delivery; Z3A.38 38 weeks gestation of pregnancy
CPT/HCPCS: 36415; 59025; 59409; 62282; 76805; 80053; 80307; 81001; 81002; 83036; 85025; 85610; 85730; 86703; 86762; 86780; 86803; 86850; 86900; 86901; 87340; 94760; 94762; 96360; 96361; 96365; 96366; 96374; G0378; J2540; J2590; J7060